=== PATIENT | female | born 1950 | race Caucasian/White ===

== ENCOUNTER 2020-11-21 21:18 | Emergency (ER) | payer MEDICARE, BC ==
[~2020-11-21] VITALS: Ht 160 cm; Wt 86.0 kg
[2020-11-21 22:15] VITALS: BP 145/95
--- NOTE | 2020-11-21 22:23 | NUR ---
BIB [facility], HIT BACK OF HEAD ON PAVEMENT. NO LOC, NO ETOH/DRUGS. TAKES ASA 325 MG DAILY. HEMATOMA BACK OF HEAD, ICE GIVEN. 20 R AC [employer] ADVISER. NO OTHER INTERVENTION. PT PLACED IN GOWN, SHE IS PLEASENT, ORIENTED. BP AND PULSE OX MONITOR ON. PT DENIES PAIN, AND DOESN'T NEED ANYTHING CURRENTLY. SCAN COMPLETED WHILE WAITING. CALL LIGHT W/IN REACH. BETH. Addendum: 11/21/20 at 2231 by TAMI pt instructed not to get OOB w/o staff being present. bedrail upx2, call light in hand
--- NOTE | 2020-11-21 22:57 | NUR ---
TASK RN PROVIDED DC INSTRUCTIONS AND WALKED PT OUT.
== END 2020-11-21 22:59 | disposition home or self-care (01) ==
LOC: ED 21:20
DX: S00.03XA Contusion of scalp, initial encounter (principal); W01.0XXA Fall on same level from slipping, tripping and stumbling without subsequent striking against object, initial encounter; Y93.89 Activity, other specified; Y92.410 Unspecified street and highway as the place of occurrence of the external cause; Y99.8 Other external cause status
CPT/HCPCS: 70450; 99284